=== PATIENT | female | born 1985 | race Caucasian/White ===

== ENCOUNTER → 2021-03-03 00:59 | Outpatient (CLI) | payer OTHER, SELFPAY ==
[2021-03-03 16:46] LABS: SARS-CoV-2 RNA PCR Negative
== END ==
PROVIDERS: PCP Family Medicine; Visit Provider Orthopaedic Surgery
DX: Z01.812 Encounter for preprocedural laboratory examination (principal); Z20.822 Contact with and (suspected) exposure to COVID-19
CPT/HCPCS: C9803; U0003; U0005

== ENCOUNTER 2021-03-07 02:09 | Day surgery (SDC) | payer OTHER, SELFPAY ==
--- NOTE | 2021-03-01 11:59 | P.HP_ITS ---
H&P: HPI History of Present Illness Date/Time: 03/01/21 11:59 the patient is a 35-year-old female who presents with pain in the right thumb. The patient has dalila locking catching with flexion extension and pain in the flexor tendon sheath. Patient has trouble gripping or grasping range of motion is limited due to her symptoms the thumb locks in flexion painfully snaps into extension. Despite conservative measures including cortisone injections anti- inflammatories and activity modifications symptoms continue. X-rays are unremarkable. The patient has signs and symptoms consistent with a right trigger thumb. She denies any neurovascular deficits no weakness. The patient has discussed further treatment options in detail with Dr. Severino she would now like to proceed with a right trigger thumb release. Chief Complaint: Right thumb pain due to flexor tenosynovitis Review of Systems Review of Systems: All systems reviewed & are unremarkable except as noted in HPI and below PMFSH Family History Family History Father Hypertension Family history of elevated blood lipids Mother Hypertension Family history of elevated blood lipids Family history of diabetes mellitus in first degree relative Social History Social History Alcohol intake: never Exam Narrative: Exam Narrative: The patient is well-developed well-nourished female in no acute distress she is noted be 5 ft 5 in tall 350 lb. Patient is alert oriented x3. Normal mood and affect. Hearing and vision are intact. Respiratory is good no distress. Pulse regular rate rhythm. Abdomen obese and benign. Extremities showed the patient's right thumb be exquisitely tender at the base of the thumb in the flexor tendon sheath. She has snapping and catching with flexion extension of the right thumb. There is no erythema heat effusion or signs of infection. Neurovascularly she is intact without deficits. Skin is intact without rashes or lesions. Central nervous system exam within normal limits. X-rays are unremarkable. Assessment and Plan Additional Plan History exam the patient is noted have right trigger thumb. The patient has discussed risks benefits limitations and alternatives of surgery in great detail Dr. Severino she has noted proceed with a right trigger thumb release. The patient is scheduled to go surgery 03/07/2021 [facility] Dr. Severino. The patient voiced understanding and agrees with the above plan.
[2021-03-02 10:41] VITALS: BMI 57.6
[2021-03-07] MEDS: ACETAMINOPHEN 500 MG TABLET 1000 MG PO (06:57)
--- NOTE | 2021-03-07 07:20 | WPDHPUPDATE1 ---
History and Physical Update Update Date/Time: 03/07/21 07:20 History and Physical has been reviewed, including an updated exam of the patient. There are NO changes in the patient's condition. Risks, benefits, and alternatives have been discussed and questions answered. Patient agrees to proceed with procedure.
[2021-03-07 07:30] VITALS: BP 167/82; PULSE 85; RESP 16; O2SAT 99
[2021-03-07 07:40] VITALS: BP 157/74; PULSE 85; RESP 16; O2SAT 100
[2021-03-07 07:51] VITALS: BP 167/78; PULSE 83; RESP 16; O2SAT 100
[2021-03-07 08:04] VITALS: BP 162/72; PULSE 80; RESP 16; O2SAT 100
--- NOTE | 2021-03-07 08:06 | PM.OP ---
Procedure Note - Brief Procedure Note - Brief Date of procedure: 03/07/21 Pre-op diagnosis: Right trigger thumb Surgeon: Saroj Severino MD Patient brought To operating room 7. the patient drove herself she she did not want anesthesia local infiltrate placed along the line of intended incision line with the thenar crease I basically did a ring block longitudinal and transverse incision made dissection carried down the fascia protecting the neurovascular bundles the A1 veronica identified and released under direct vision full excursion of the tendon was seen and no catching or locking noted wound irrigated and closed with 3 0 Prolene sterile dressing applied patient tolerated procedure well thank you. postop diagnosis trigger thumb right has anesthesia is local
== END 2021-03-07 08:21 | disposition home or self-care (01) ==
PROVIDERS: PCP Family Medicine; Visit Provider Orthopaedic Surgery
PROC: (CPT 26055; principal; 2021-03-07 07:30)
DX: M65.311 Trigger thumb, right thumb (principal)
CPT/HCPCS: 26055; A9270